=== PATIENT | male | born 1975 | race Asian ===

== ENCOUNTER 2017-02-24 17:11 | Emergency (ER) | payer BC ==
[~2017-02-24] VITALS: Ht 177.8 cm; Wt 102.1 kg
[2017-02-24] MEDS ORDERED: ONDANSETRON HCL 4 MG/2 ML VIAL IV ONE (19:45)
[2017-02-24] MEDS ORDERED: MORPHINE SULFATE 4 MG/ML SYRG IV ONE ×2 (19:45→21:30)
[2017-02-24] MEDS ORDERED: ETOMIDATE (2MG/ML) 20ML VIAL IV ONE (20:45)
[2017-02-24 21:25] VITALS: BP 157/63
== END 2017-02-24 21:33 | disposition home or self-care (01) ==
LOC: ER 17:11
DX: S82.841A Displaced bimalleolar fracture of right lower leg, initial encounter for closed fracture (principal); S82.842A Displaced bimalleolar fracture of left lower leg, initial encounter for closed fracture; Y08.89XA Assault by other specified means, initial encounter; Y93.89 Activity, other specified; Y99.8 Other external cause status; Y92.89 Other specified places as the place of occurrence of the external cause
CPT/HCPCS: 27788; 73020; 73590; 73610; 96374; 96375; 99152; 99285; J2270; J2405